=== PATIENT | female | born 1955 ===

== ENCOUNTER 2017-02-28 22:00 | Emergency (ER) | payer OTHER ==
--- NOTE | 2017-03-01 01:45 | ED CLINICAL REPORT ---
Clinical Report - Physicians/Mid Levels [facility] [address] [place] [address] 02/28/2017 22:02 Patient: DANETTE BUCKNER Time Seen: 22:31. Arrived- By private vehicle. Historian- patient. HISTORY OF PRESENT ILLNESS Chief Complaint: ABDOMINAL PAIN. At its maximum, severity described as 9 / 10. When seen in the E.D., severity described as 6 / 10. It is described as "pain" and cramping and it is described as located in the lower abdomen and radiating to the right lower quadrant of the abdomen and to the left lower quadrant of the abdomen. This started today at about 1:30 PM and is still present but is better now. It was abrupt in onset and has been constant. The patient has had nausea. No vomiting. She has had moderate loose stools (for about week). Similar symptoms previously: Once. Diagnosis: diverticulitis. REVIEW OF SYSTEMS The patient has had a subjective fever, chills and hesitancy and experienced sweats. No calf pain, chest pain, cough, difficulty breathing or pedal edema. No palpitations. All systems otherwise negative, except as recorded above. PAST HISTORY PCP - [facility]. SOCIAL HISTORY Current some days smoker. Occasional alcohol use. History of occasional drug use: marijuana. FAMILY HISTORY Diabetes in first-degree relative (mother). ADDITIONAL NOTES The nursing notes have been reviewed. PHYSICAL EXAM Vital Signs: 02/28/2017 22:32 BP: 128/73. HR: 99. RR: 20. O2 saturation: 98%. Temp: 98.8 F. Pain level now: 9/10. Have been reviewed. Appearance: Alert. Eyes: Pupils equal, round and reactive to light. ENT: Pharynx normal. Neck: Normal inspection. Neck supple. CVS: Normal heart rate and rhythm. Heart sounds normal. Respiratory: No respiratory distress. Breath sounds normal. Abdomen: Soft. Moderate tenderness in the left side of the abdomen, left lower quadrant and lower abdomen. Bowel sounds normal. No organomegaly. No mass. Back: Normal inspection. No CVA tenderness. Skin: Skin warm and dry. Normal skin color. No rash. Normal skin turgor. Extremities: Extremities exhibit normal ROM. No lower extremity edema. LABS, X-RAYS, AND EKG Abdominal CT: extensive pericolonic inflammatory changes in the sigmoid colon consistent with diverticulitis. No mature abscess. Gallstones. This is per a preliminary report by Dr. Chris Kelly M.D. of rn night radiology. The study was interpreted contemporaneously by me. Laboratory Tests: UA-Culture if indicated: (KIRIT: 02/28/2017 22:45) ( [facility] 02/28/2017 23:08) Final results Test Result Flag Units (Reference) URINE COLOR YELLOW URINE APPEARANCE CLEAR URINE GLUCOSE NEGATIVE (NEGATIVE) URINE BILIRUBIN NEGATIVE (NEGATIVE) URINE KETONE NEGATIVE (NEGATIVE) URINE SPECIFIC GRAVITY 1.010 (1.010-1.030) URINE PH 6.0 (5.0-8.0) URINE PROTEIN NEGATIVE (NEGATIVE) URINE UROBILINOGEN 0.2 EU/dL (0.2-1.0) URINE NITRITE NEGATIVE (NEGATIVE) URINE BLOOD 1+ (NEGATIVE) URINE LEUK ESTERASE NEGATIVE (NEGATIVE) URINE RBC 0-1 rbc/hpf (0-1) URINE WBC 0-1 wbc/hpf (0-1) URINE EPITHELIAL CELLS 0-1 EPI/hpf (0-5) URINE BACTERIA NONE SEEN (NONE SEEN) URINE COMMENT CULT NOT INDICATED URINE CULTURES ARE SET-UP BASED ON THE FOLLOWING CRITERIA:POSITIVE NITRITEPOSITIVE LEUKOCYTE ESTERASEGREATER THAN 10 WHITE BLOOD CELLSMODERATE (2+) OR GREATER BACTERIA CBC w Diff: (KIRIT: 02/28/2017 22:45) ( [facility] 02/28/2017 22:59) Final results Test Result Flag Units (Reference) WHITE BLOOD COUNT 16.2 H K/uL (4.5-11.5) RED BLOOD COUNT 4.47 M/uL (4.00-5.20) HEMOGLOBIN 13.6 gm/dL (12.0-16.0) HEMATOCRIT 41.2 % (36.0-46.0) MEAN CELL VOLUME 92 fL (80-100) MEAN CORPUSCULAR HGB 31 pg (26-34) MEAN CORPUSCULAR HGB CONC 33 g/dL (31-37) RED CELL DISTRIBUTION WIDTH 13.1 % (11.6-14.8) PLATELET COUNT 298 K/uL (150-400) LYMPH % 10.5 L % (25-40) MONO % 5.5 % (3-14) GRANULOCYTE % 84.0 (53-90) Lipase: (KIRIT: 02/28/2017 22:45) ( MsgRcvd 02/28/2017 23:24) Final results Test Result Flag Units (Reference) LIPASE 93 U/L (73-393) CMP: (KIRIT: 02/28/2017 22:45) ( MsgRcvd 02/28/2017 23:08) Final results Test Result Flag Units (Reference) GLUCOSE 147 H mg/dL (70-110) BUN 11 mg/dL (7-18) CREATININE 0.8 mg/dL (0.6-1.3) Estimated GFR >60 mL/min Estimated GFR- >60 mL/min Note: Persistent reduction over 3 months in eGFR<60 mL/min/1.73 m2 defines CKD. Patients with eGFR values>=60 mL/min/1.73 m2 may also have CKD if evidence ofpersistent proteinuria. Additional information may be foundat www.kidney.org. SODIUM 140 mmol/L (136-145) POTASSIUM 3.9 mmol/L (3.5-5.1) CHLORIDE 103 mmol/L (98-107) CARBON DIOXIDE 22 mmol/L (21-32) CALCIUM 9.2 mg/dL (8.5-10.1) TOTAL PROTEIN 7.6 g/dL (6.4-8.2) ALBUMIN 4.2 g/dL (3.3-5.0) BILIRUBIN, TOTAL 1.2 H mg/dL (0.0-1.0) ALKALINE PHOSPHATASE 103 U/L (46-116) AST (SGOT) 16 U/L (15-37) ALT (SGPT) 26 U/L (12-78) . PROGRESS AND PROCEDURES Patient/family counseled. Old medical records ordered. Old records unavailable. Disposition: Discharged. Condition: stable. CLINICAL IMPRESSION Acute diverticulitis. INSTRUCTIONS No driving or operating machinery while taking medication. Sedative medication was given during your visit. Drink plenty of fluids. Warnings: Further evaluation is necessary. GENERAL WARNINGS: Return or contact your physician immediately if your condition worsens or changes unexpectedly, if not improving as expected, or if other problems arise. Prescription Medications: Hydrocodone/APAP 5mg/325mg: take 1 to 2 orally every 6 hours as needed for pain. Dispense fifteen (15). No refills. Cipro 500 mg: take 1 tab orally every 12 hours for 10 days. No refills. Substitution is permissible. (18 pills to finish the course started in the ER. Start this on 03/02/17 as discussed) Flagyl 500 mg: Take 1 tablet orally every 8 hours for 10 days. No refill. Substitution is permissible. (29 pills to finish the course started in the ER) Understanding of the discharge instructions verbalized by patient. Follow-up with: [facility], , , [address], [place] [address] Follow up tomorrow. Call for an appointment. (Electronically signed by Arie Ramos MD 03/02/2017 15:45)
--- NOTE | 2017-03-01 01:45 | ED ORDER SUMMARY ---
..... Patient: DANETTE BUCKNER OrderSheet [facility] VisitID: [id number] [place], [place] [id number] 61y, F Registration Date/Time: 02/28/2017 ORDER SHEET Weight: 88.4 kg (stated) Allergies: GENERAL ORDERS: UA-Culture if indicated Urgent (22:49 02/28/2017 MWinterer R.N. per protocol) (Ack 22:51 CHagerty ER Stock Trader) (22:51 MWinterer R.N.) CBC w Diff Urgent (22:49 02/28/2017 MWinterer R.N. per protocol) (Ack 22:51 CHagerty ER Stock Trader) (22:51 MWinterer R.N.) CMP Urgent (22:49 02/28/2017 MWinterer R.N. per protocol) (Ack 22:51 CHagerty ER Stock Trader) (22:51 MWinterer R.N.) Lipase Urgent (23:14 02/28/2017 MWinterer R.N. per protocol) (23:18 CHagerty ER Stock Trader) Amylase Urgent (23:23 02/28/2017 Andres GORDON) (23:25 CHagerty ER Stock Trader) CT Abd/Pel w Cont (Yes) (See report) Urgent (23:29 02/28/2017 Andres GORDON) (Ack 23:31 CHagerty ER Stock Trader) (0:39 RMarsden R.N.) MEDICATION ORDERS: Levofloxacin PO 750 mg (NOW) (01:42 03/01/2017 Andres GORDON) (Ack 1:46 RMarsden R.N.) (2:00 RMarsden R.N.) Metronidazole PO 500 mg (NOW) (01:42 03/01/2017 Andres GORDON) (Ack 1:46 RMarsden R.N.) (2:01 RMarsden R.N.) IV FLUIDS: IV NS : initial bolus 500 mL (1000 mL/hr), then 125 mL/hr for 4h (NOW); Urgent (23:23 02/28/2017 Andres GORDON) (Ack 23:37 RMarsden R.N.) (23:47 RMarsden R.N.) Dilaudid IV 0.5 mg (HIGH ALERT MEDICATION, NOW) (23:28 02/28/2017 Andres GORDON) (Ack 23:37 Yaneth R.N.) (23:46 RMliz R.N.) Zofran IV 4 mg (NOW) (23:29 02/28/2017 Andres GORDON) (Ack 23:37 Yaneth R.N.) (23:44 RMliz R.N.) ORDER SHEET NOTES: [Electronically signed by Yvrose Roldan R.N. (02:45 03/01/2017)] [Electronically signed by Arie Ramos MD (15:45 03/02/2017)] [Electronically locked/signed by Yvrose Roldan R.N. (02:45 03/01/2017)]
--- NOTE | 2017-03-01 01:45 | ED ORDER SUMMARY ---
..... Patient: DANETTE BUCKNER OrderSheet [facility] VisitID: [id number] [place], [place] [id number] 61y, F Registration Date/Time: 02/28/2017 ORDER SHEET Weight: 88.4 kg (stated) Allergies: GENERAL ORDERS: UA-Culture if indicated Urgent (22:49 02/28/2017 MWinterer R.N. per protocol) (Ack 22:51 CHagerty ER Movement Assembly Final Inspector) (22:51 MWinterer R.N.) CBC w Diff Urgent (22:49 02/28/2017 MWinterer R.N. per protocol) (Ack 22:51 CHagerty ER Movement Assembly Final Inspector) (22:51 MWinterer R.N.) CMP Urgent (22:49 02/28/2017 MWinterer R.N. per protocol) (Ack 22:51 CHagerty ER Movement Assembly Final Inspector) (22:51 MWinterer R.N.) Lipase Urgent (23:14 02/28/2017 MWinterer R.N. per protocol) (23:18 CHagerty ER Movement Assembly Final Inspector) Amylase Urgent (23:23 02/28/2017 Andres GORDON) (23:25 CHagerty ER Movement Assembly Final Inspector) CT Abd/Pel w Cont (Yes) (See report) Urgent (23:29 02/28/2017 Andres GORDON) (Ack 23:31 CHagerty ER Movement Assembly Final Inspector) (0:39 RMarsden R.N.) MEDICATION ORDERS: Levofloxacin PO 750 mg (NOW) (01:42 03/01/2017 Andres GORDON) (Ack 1:46 RMarsden R.N.) (2:00 RMarsden R.N.) Metronidazole PO 500 mg (NOW) (01:42 03/01/2017 Andres GORDON) (Ack 1:46 RMarsden R.N.) (2:01 RMarsden R.N.) IV FLUIDS: IV NS : initial bolus 500 mL (1000 mL/hr), then 125 mL/hr for 4h (NOW); Urgent (23:23 02/28/2017 Andres GORDON) (Ack 23:37 RMarsden R.N.) (23:47 RMarsden R.N.) Dilaudid IV 0.5 mg (HIGH ALERT MEDICATION, NOW) (23:28 02/28/2017 Andres GORDON) (Ack 23:37 Yaneth R.N.) (23:46 RMliz R.N.) Zofran IV 4 mg (NOW) (23:29 02/28/2017 Andres GORDON) (Ack 23:37 Yaneth R.N.) (23:44 RMliz R.N.) ORDER SHEET NOTES: [Electronically signed by Yvrose Roldan R.N. (02:45 03/01/2017)] [Electronically signed by Arie Ramos MD (15:45 03/02/2017)] [Electronically locked/signed by Yvrose Roldan R.N. (02:45 03/01/2017)]
--- NOTE | 2017-03-01 01:45 | ED CLINICAL REPORT ---
Clinical Report - Physicians/Mid Levels [facility] [address] [place] [address] 02/28/2017 22:02 Patient: DANETTE BUCKNER Time Seen: 22:31. Arrived- By private vehicle. Historian- patient. HISTORY OF PRESENT ILLNESS Chief Complaint: ABDOMINAL PAIN. At its maximum, severity described as 9 / 10. When seen in the E.D., severity described as 6 / 10. It is described as "pain" and cramping and it is described as located in the lower abdomen and radiating to the right lower quadrant of the abdomen and to the left lower quadrant of the abdomen. This started today at about 1:30 PM and is still present but is better now. It was abrupt in onset and has been constant. The patient has had nausea. No vomiting. She has had moderate loose stools (for about week). Similar symptoms previously: Once. Diagnosis: diverticulitis. REVIEW OF SYSTEMS The patient has had a subjective fever, chills and hesitancy and experienced sweats. No calf pain, chest pain, cough, difficulty breathing or pedal edema. No palpitations. All systems otherwise negative, except as recorded above. PAST HISTORY PCP - [facility]. SOCIAL HISTORY Current some days smoker. Occasional alcohol use. History of occasional drug use: marijuana. FAMILY HISTORY Diabetes in first-degree relative (mother). ADDITIONAL NOTES The nursing notes have been reviewed. PHYSICAL EXAM Vital Signs: 02/28/2017 22:32 BP: 128/73. HR: 99. RR: 20. O2 saturation: 98%. Temp: 98.8 F. Pain level now: 9/10. Have been reviewed. Appearance: Alert. Eyes: Pupils equal, round and reactive to light. ENT: Pharynx normal. Neck: Normal inspection. Neck supple. CVS: Normal heart rate and rhythm. Heart sounds normal. Respiratory: No respiratory distress. Breath sounds normal. Abdomen: Soft. Moderate tenderness in the left side of the abdomen, left lower quadrant and lower abdomen. Bowel sounds normal. No organomegaly. No mass. Back: Normal inspection. No CVA tenderness. Skin: Skin warm and dry. Normal skin color. No rash. Normal skin turgor. Extremities: Extremities exhibit normal ROM. No lower extremity edema. LABS, X-RAYS, AND EKG Abdominal CT: extensive pericolonic inflammatory changes in the sigmoid colon consistent with diverticulitis. No mature abscess. Gallstones. This is per a preliminary report by Dr. Chris Kelly M.D. of poultry processor radiology. The study was interpreted contemporaneously by me. Laboratory Tests: UA-Culture if indicated: (KIRIT: 02/28/2017 22:45) ( [facility] 02/28/2017 23:08) Final results Test Result Flag Units (Reference) URINE COLOR YELLOW URINE APPEARANCE CLEAR URINE GLUCOSE NEGATIVE (NEGATIVE) URINE BILIRUBIN NEGATIVE (NEGATIVE) URINE KETONE NEGATIVE (NEGATIVE) URINE SPECIFIC GRAVITY 1.010 (1.010-1.030) URINE PH 6.0 (5.0-8.0) URINE PROTEIN NEGATIVE (NEGATIVE) URINE UROBILINOGEN 0.2 EU/dL (0.2-1.0) URINE NITRITE NEGATIVE (NEGATIVE) URINE BLOOD 1+ (NEGATIVE) URINE LEUK ESTERASE NEGATIVE (NEGATIVE) URINE RBC 0-1 rbc/hpf (0-1) URINE WBC 0-1 wbc/hpf (0-1) URINE EPITHELIAL CELLS 0-1 EPI/hpf (0-5) URINE BACTERIA NONE SEEN (NONE SEEN) URINE COMMENT CULT NOT INDICATED URINE CULTURES ARE SET-UP BASED ON THE FOLLOWING CRITERIA:POSITIVE NITRITEPOSITIVE LEUKOCYTE ESTERASEGREATER THAN 10 WHITE BLOOD CELLSMODERATE (2+) OR GREATER BACTERIA CBC w Diff: (KIRIT: 02/28/2017 22:45) ( [facility] 02/28/2017 22:59) Final results Test Result Flag Units (Reference) WHITE BLOOD COUNT 16.2 H K/uL (4.5-11.5) RED BLOOD COUNT 4.47 M/uL (4.00-5.20) HEMOGLOBIN 13.6 gm/dL (12.0-16.0) HEMATOCRIT 41.2 % (36.0-46.0) MEAN CELL VOLUME 92 fL (80-100) MEAN CORPUSCULAR HGB 31 pg (26-34) MEAN CORPUSCULAR HGB CONC 33 g/dL (31-37) RED CELL DISTRIBUTION WIDTH 13.1 % (11.6-14.8) PLATELET COUNT 298 K/uL (150-400) LYMPH % 10.5 L % (25-40) MONO % 5.5 % (3-14) GRANULOCYTE % 84.0 (53-90) Lipase: (KIRIT: 02/28/2017 22:45) ( MsgRcvd 02/28/2017 23:24) Final results Test Result Flag Units (Reference) LIPASE 93 U/L (73-393) CMP: (KIRIT: 02/28/2017 22:45) ( MsgRcvd 02/28/2017 23:08) Final results Test Result Flag Units (Reference) GLUCOSE 147 H mg/dL (70-110) BUN 11 mg/dL (7-18) CREATININE 0.8 mg/dL (0.6-1.3) Estimated GFR >60 mL/min Estimated GFR- >60 mL/min Note: Persistent reduction over 3 months in eGFR<60 mL/min/1.73 m2 defines CKD. Patients with eGFR values>=60 mL/min/1.73 m2 may also have CKD if evidence ofpersistent proteinuria. Additional information may be foundat www.kidney.org. SODIUM 140 mmol/L (136-145) POTASSIUM 3.9 mmol/L (3.5-5.1) CHLORIDE 103 mmol/L (98-107) CARBON DIOXIDE 22 mmol/L (21-32) CALCIUM 9.2 mg/dL (8.5-10.1) TOTAL PROTEIN 7.6 g/dL (6.4-8.2) ALBUMIN 4.2 g/dL (3.3-5.0) BILIRUBIN, TOTAL 1.2 H mg/dL (0.0-1.0) ALKALINE PHOSPHATASE 103 U/L (46-116) AST (SGOT) 16 U/L (15-37) ALT (SGPT) 26 U/L (12-78) . PROGRESS AND PROCEDURES Patient/family counseled. Old medical records ordered. Old records unavailable. Disposition: Discharged. Condition: stable. CLINICAL IMPRESSION Acute diverticulitis. INSTRUCTIONS No driving or operating machinery while taking medication. Sedative medication was given during your visit. Drink plenty of fluids. Warnings: Further evaluation is necessary. GENERAL WARNINGS: Return or contact your physician immediately if your condition worsens or changes unexpectedly, if not improving as expected, or if other problems arise. Prescription Medications: Hydrocodone/APAP 5mg/325mg: take 1 to 2 orally every 6 hours as needed for pain. Dispense fifteen (15). No refills. Cipro 500 mg: take 1 tab orally every 12 hours for 10 days. No refills. Substitution is permissible. (18 pills to finish the course started in the ER. Start this on 03/02/17 as discussed) Flagyl 500 mg: Take 1 tablet orally every 8 hours for 10 days. No refill. Substitution is permissible. (29 pills to finish the course started in the ER) Understanding of the discharge instructions verbalized by patient. Follow-up with: [facility], , , [address], [place] [address] Follow up tomorrow. Call for an appointment. (Electronically signed by Arie Ramos MD 03/02/2017 15:45)
--- NOTE | 2017-03-01 01:45 | ED NURSING NOTES ---
Clinical Report - Nurses [facility] [address] [place] [address] 02/28/2017 22:02 Patient: DANETTE BUCKNER TRIAGE Acuity: LEVEL 3. Chief Complaint: ABDOMINAL PAIN and NAUSEA. Alert. No acute distress. SEPSIS SCREEN: Sepsis Screen. Negative (no infection suspected/documented). --22:37 Brittney Hwang R.N. 22:32 02/28/17. BP: 128/73. HR: 99. RR: 20. O2 saturation: 98% on room air. Temp: 98.8 F (oral). Pain level now: 9/10. --22:37 Brittney Hwang R.N. Weight: 88.4 kg stated. Height/Length: 62 inches Per Patient. BMI: 35.7. --22:34 Brittney Hwang R.N. Medications Lisinopril Oral. --22:33 Brittney Hwang R.N. Atorvastatin Calcium Oral. --22:33 Brittney Hwang R.N. Medication/allergy information source: the patient. --22:37 Brittney Hwang R.N. History Arrived by private vehicle. Historian: patient. Accompanied by spouse. Primary physician ([facility]). This started today. ( aching). Relates location as in the right and left pelvic area and pelvic area. Notes pain level as 9/10 on arrival. ( Pt states painful urination and a hard time voiding. Pt also states pain is like a bout of diverticulitis she had in the past.). Reports last BM was today. Treatment CHEMISTRY PROFESSOR: (aleeve). PAST MEDICAL HX: Immunizations: up-to-date. The patient is post-menopausal. SOCIAL HX: Current some days light tobacco smoker (cigarette)- less than 1/2 a pack per day. Occasional alcohol use. History of occasional drug use: marijuana. FALL RISK ASSESSMENT: Fall risk assessment completed. No fall risk identified. NUTRITIONAL RISK ASSESSMENT: The nutritional risk assessment revealed no deficiencies. FUNCTIONAL ASSESSMENT: Functional assessment: no impairments noted. LEARNING NEEDS ASSESSMENT: The learning needs assessment revealed no barriers. SKIN INTEGRITY ASSESSMENT: Skin integrity risk assessment completed. No skin integrity risk identified. --22:37 Brittney Hwang R.N. PROBLEMS: Hypertension. Diverticulitis. --22:34 Brittney Hwang R.N. ADDITIONAL SURGERIES: Appendectomy. --22:34 Brittney Hwang R.N. Assessment GENERAL / NEURO / PSYCH: Alert. Oriented X 4. Appears in no acute distress. [place] Coma Scale: 15- eyes open spontaneously (4); best verbal response- oriented x 4 (5); best motor response- obeys commands (6). Patient appears calm and cooperative. RESPIRATORY: Respirations not labored. CVS: Capillary refill less than 2 seconds. GI / : Abdomen soft and nontender. SKIN: Mucous membranes are pink. Skin is warm and dry. --22:37 Brittney Hwang R.N. Interventions ID band on patient. To treatment room. Transported via wheelchair. --22:37 Brittney Hwang R.N. PHYSICAL ASSESSMENT 22:38 02/28/17. To room via wheelchair. Patient gowned. GENERAL / NEURO / PSYCH: Alert. Oriented X 4. Appears in no acute distress. HEENT: Mucous membranes are pink. RESPIRATORY: Respirations not labored. CVS: Capillary refill less than 2 seconds. GI / : Abdomen soft and nontender. SKIN: Skin is warm and dry. --22:38 Brittney Hwang R.N. NURSING PROGRESS NOTES 22:38 02/28/17. Patient gowned. Reassurance given. Two patient identifiers checked. Call light placed in reach. Side rails up x 1. Bed placed in lowest position. Brakes of bed on. Patient ready for evaluation- chart flagged and ED physician and PA notified. --22:38 Brittney Hwang R.N. ( Pt ambulated to to provide urine sample.). --22:38 Brittney Hwang R.N. 22:50 02/28/2017 Site #1 started via IV in the left antecubital space with an 20g angiocath, with aseptic technique and good blood return; one attempt. Blood drawn: rainbow set. Labeled in the presence of the patient and sent to the lab. Saline lock flushed with 10 mL saline. --22:50 Brittney Hwang R.N. Checked patient name and birthdate. Instructions provided to collect clean catch urine and patient verbalized understanding. Clean catch urine collected with return of yellow-colored clear urine; sample sent to lab for urinalysis. Specimen labeled in the presence of the patient. --23:20 Brittney Hwang R.N. 23:20 02/28/17. Care transferred and report given (Yvrose, ED RN). --23:20 Britteny Hwang R.N. 23:42 02/28/2017 Started bag #1 1000 IV Fluids IV NS (Saline); bolus of 500 mL over 30 minute(s) then at 125 mL/hr over 4 hour(s) via site #1 via IV pump. Allergies verified and confirmed 5 rights. IV patency established. IV site checked: no pain, redness, or swelling. IV flushed thoroughly pre- and post-medication administration. Completed per protocol. --23:48 Yvrose Roldan R.N. 23:44 02/28/2017 Zofran (Ondansetron HCl) IVP 4 mg given over 2 minute(s) via site #1. Allergies verified and confirmed 5 rights. IV patency established. IV site checked: no pain, redness, or swelling. IV flushed thoroughly pre- and post-medication administration. IVP given by RN. --23:44 Yvrose Roldan R.N. 23:46 02/28/2017 Dilaudid (HYDROmorphone HCl PF) IVP 0.5 mg given over 2 minute(s) via site #1. Allergies verified, confirmed 5 rights and sedative warning given to the patient and patient's family. IV patency established. IV site checked: no pain, redness, or swelling. IV flushed thoroughly pre- and post-medication administration. IVP given by RN. --23:46 Yvrose Roldan R.N. <<STRICKEN ENTRY-- 23:47 02/28/2017 Started bag #1 1000 mL IV Fluids IV NS (Saline); bolus of 500 mL over 30 minute(s) then at 125 mL/hr over 4 hour(s) via site #1 via IV pump. Allergies verified and confirmed 5 rights. IV patency established. IV site checked: no pain, redness, or swelling. IV flushed thoroughly pre- and post-medication administration. Completed per protocol. --23:47 Yvrose Roldan R.N. --END STRIKE>> Correction. --23:48 Yvrose Roldan R.N. 00:18 03/01/17. BP: 99/54. HR: 70. RR: 14. O2 saturation: 97%. Temp: deferred. Pain level now: 01/13. --00:42 Yvrose Roldan R.N. ( Patient hooked back up to IV fluids after CT). --00:42 Yvrose Roldan R.N. ( Patient requested to have IV checked. This RN checked the IV site and IV fluids. There is no redness, swelling or warmth at IV site, and fluids are running.). --01:38 Yvrose Roldan R.N. 01:48 03/01/2017 IV Fluids IV NS Discontinued: bag #1 discontinued upon discharge. Total amount infused: 850 mL. IV patency established. IV site checked: no pain, redness, or swelling. IV flushed thoroughly. --02:43 Yvrose Roldan R.N. 01:51 03/01/2017 Metronidazole PO Tablets 500 mg given. Allergies verified and confirmed 5 rights. --02:01 Yvrose Roldan R.N. 02:00 03/01/2017 Levofloxacin PO Tablets 750 mg given. Allergies verified and confirmed 5 rights. --02:00 Yvrose Roldan R.N. DISPOSITION / DISCHARGE 01:03/01/17. BP: 99/55. HR: 80. RR: 16. O2 saturation: 95%. Pain level now: 11/13. --02:01 Yvrose Roldan R.N. 01:49 03/01/2017 Site #1 removed upon discharge. Manual pressure and bandaid applied. --02:44 Yvrose Roldan R.N. 02:03/01/17. No learning barriers present. Discharge instructions provided and reviewed with the patient. Reviewed warnings. Reviewed medication(s). Treatments reviewed. Reviewed referrals. Activity restrictions reviewed. Patient verbalized understanding. Written instructions provided in Italian. The patient was discharged home and accompanied by spouse. She left the Emergency Department ambulatory and via private vehicle. Spouse driving. --02:01 Yvrose Roldan R.N. Locked/Released at 03/01/2017 2:45 by Yvrose Roldan R.N.
--- NOTE | 2017-03-01 08:17 | DIAGNOSTIC IMAGING REPORT ---
PROCEDURE: ABDOMEN/PELVIS WITH CONTRAST CLINICAL INDICATION: ABDOMINAL PAIN TECHNIQUE: 125 ml of Isovue 300 were injected intravenously and axial images were obtained of the abdomen and pelvis with sagittal and coronal reformations. COMPARISON: None. FINDINGS: ABDOMEN: Noncalcified 15 mm stone definitely in the gallbladder fundus. Clear lung bases. Normal sized heart. No hiatal hernia. The liver, adrenal glands, kidneys, pancreas and spleen are normal. The abdominal aorta is normal in its course and caliber. Mild calcific atherosclerosis. There are no suspicious calcifications, retroperitoneal adenopathy or masses. The stomach and upper small bowel loops are normal. Diverticulosis is seen in the transverse and upper ascending and descending colon. There is extensive inflammation around the entire sigmoid colon which also contains a numerous diverticula. No evidence of perforation, free fluid, or focal fluid collection. PELVIS: The appendix is not visualized. The pelvic small bowel loops are normal. The uterus, ovaries, urinary bladder, and pelvic vessels are normal. No adenopathy, free fluid, or pelvic mass. Intact osseous structures. IMPRESSION: 1. Acute, uncomplicated sigmoid diverticulitis. 2. Cholelithiasis. 3. Diverticula throughout the remainder of the colon. 4. Preliminary report by Dr. Chris Kelly of [facility] radiology. All CT scans at this facility use dose modulation, iterative reconstruction, and/or weight-based dosing when appropriate to reduce radiation dose to as low as reasonably achievable.
--- NOTE | 2017-03-02 15:46 | ED DISCHARGE INSTRUCTIONS ---
Patient: DANETTE BUCKNER General Instructions [facility] VisitID: [id number] [place] [address] 61y, F Registration Date/Time: 02/28/2017 Acute diverticulitis. INSTRUCTIONS No driving or operating machinery while taking medication. Sedative medication was given during your visit. Drink plenty of fluids. Warnings: Further evaluation is necessary. GENERAL WARNINGS: Return or contact your physician immediately if your condition worsens or changes unexpectedly, if not improving as expected, or if other problems arise. Prescription Medications: Hydrocodone/APAP 5mg/325mg: take 1 to 2 orally every 6 hours as needed for pain. Dispense fifteen (15). No refills. Cipro 500 mg: take 1 tab orally every 12 hours for 10 days. No refills. Substitution is permissible. (18 pills to finish the course started in the ER. Start this on 03/02/17 as discussed) Flagyl 500 mg: Take 1 tablet orally every 8 hours for 10 days. No refill. Substitution is permissible. (29 pills to finish the course started in the ER) Understanding of the discharge instructions verbalized by patient. Follow-up with: [facility], , , [address], [place] [address] Follow up tomorrow. Call for an appointment. ADDITIONAL INFORMATION Diverticulitis Some people develop pouches along the wall of the colon as they get older. The pouches,called diverticuli, usually cause no symptoms. If the pouches become blocked, an infection may occur known as diverticulitis. This causes lower abdominal pain and fever. If not treated, it can become a serious condition, causing an abscess to form inside the pouch. The abscess may block the instestinal tract even or rupture, spreading infection throughout the abdomen. When treatment is started early, oral antibiotics alone may be enough to cure diverticulitis. This method is tried first. However, if you do not improve or if your condition worsens while you are trying oral antibiotics, it will be necessary to admit you to the hospital for IV antibiotics. Severe cases may require surgery. Home care The following guidelines will help you care for your diverticulitis at home: During the acute illness, rest and follow a low-fiber diet: Foods to Include: flake cereal, mashed potatoes, pancakes, waffles, pasta, white bread, rice, applesauce, bananas, eggs, meat, fish, poultry, tofu, cooked vegetables. Take antibiotics exactly as directed. Do not miss any doses or stop taking the medication, even if you feel better. Monitor your temperature and report any rising temperature to your doctor. Preventing future attacks Once you have had an episode of diverticulitis, you are at risk of having a recurrence. After you have recovered from this episode, you may be able to reduce your risk by eating a high-fiber diet (2035 gm/day of fiber). This cleans out the colon pouches that already exist and prevent new ones from forming. Foods high in fiber includes fresh fruits and edible peelings, raw or lightly cooked vegetables, whole grain cereals and breads, dried beans and peas, bran. Follow-up care Follow up with your doctor as advised or sooner if you are not improving in the nexttwo days. When to seek medical care Get prompt medical attention if any of the following occur: Fever of 100.4F (38C) or higher, or as directed by your health care provider Repeated vomiting or swelling of the abdomen Weakness, dizziness, light-headedness Increasing abdominal pain that becomes severe or spreads to your back Pain that moves to the right lower abdomen Rectal bleeding (red, black or maroon color of the stools) Unexpected vaginal bleeding Hydrocodone Bitartrate, Acetaminophen Oral tablet What is this medicine? ACETAMINOPHEN; HYDROCODONE (a set a DERICK thea fen; stephanie droe KOE done) is a pain reliever. It is used to treat mild to moderate pain. How should I use this medicine? Take this medicine by mouth. Swallow it with a full glass of water. Follow the directions on the prescription label. If the medicine upsets your stomach, take the medicine with food or milk. Do not take more than you are told to take. Talk to your registered dental assistant rda regarding the use of this medicine in children. This medicine is not approved for use in children. What side effects may I notice from receiving this medicine? Side effects that you should report to your doctor or health residential child care counselor as soon as possible: allergic reactions like skin rash, itching or hives, swelling of the face, lips, or tongue breathing problems confusion feeling faint or lightheaded, falls stomach pain yellowing of the eyes or skin Side effects that usually do not require medical attention (report to your doctor or health residential child care counselor if they continue or are bothersome): nausea, vomiting stomach upset What may interact with this medicine? alcohol antihistamines isoniazid medicines for depression, anxiety, or psychotic disturbances medicines for sleep muscle relaxants naltrexone narcotic medicines (opiates) for pain phenobarbital ritonavir tramadol What if I miss a dose? If you miss a dose, take it as soon as you can. If it is almost time for your next dose, take only that dose. Do not take double or extra doses. Where should I keep my medicine? Keep out of the reach of children. This medicine can be abused. Keep your medicine in a safe place to protect it from theft. Do not share this medicine with anyone. Selling or giving away this medicine is dangerous and against the law. Store at room temperature between 15 and 30 degrees C (59 and 86 degrees F). Protect from light. Keep container tightly closed. Throw away any unused medicine after the expiration date. Discard unused medicine and used packaging carefully. Pets and children can be harmed if they find used or lost packages. What should I tell my health care provider before I take this medicine? They need to know if you have any of these conditions: brain tumor Crohn's disease, inflammatory bowel disease, or ulcerative colitis drink more than 3 alcohol-containing drinks per day drug abuse or addiction head injury heart or circulation problems kidney disease or problems going to the bathroom liver disease lung disease, asthma, or breathing problems an unusual or allergic reaction to acetaminophen, hydrocodone, other opioid analgesics, other medicines, foods, dyes, or preservatives or trying to get breast-feeding What should I watch for while using this medicine? Tell your doctor or health residential child care counselor if your pain does not go away, if it gets worse, or if you have new or a different type of pain. You may develop tolerance to the medicine. Tolerance means that you will need a higher dose of the medicine for pain relief. Tolerance is normal and is expected if you take the medicine for a long time. Do not suddenly stop taking your medicine because you may develop a severe reaction. Your body becomes used to the medicine. This does NOT mean you are addicted. Addiction is a behavior related to getting and using a drug for a non-medical reason. If you have pain, you have a medical reason to take pain medicine. Your doctor will tell you how much medicine to take. If your doctor wants you to stop the medicine, the dose will be slowly lowered over time to avoid any side effects. You may get drowsy or dizzy when you first start taking the medicine or change doses. Do not drive, use machinery, or do anything that may be dangerous until you know how the medicine affects you. Stand or sit up slowly. There are different types of narcotic medicines (opiates) for pain. If you take more than one type at the same time, you may have more side effects. Give your health care provider a list of all medicines you use. Your doctor will tell you how much medicine to take. Do not take more medicine than directed. Call emergency for help if you have problems breathing. The medicine will cause constipation. Try to have a bowel movement at least every 2 to 3 days. If you do not have a bowel movement for 3 days, call your doctor or health residential child care counselor. Too much acetaminophen can be very dangerous. Do not take Tylenol (acetaminophen) or medicines that contain acetaminophen with this medicine. Many non-prescription medicines contain acetaminophen. Always read the labels carefully. Ciprofloxacin Hydrochloride Oral tablet What is this medicine? CIPROFLOXACIN (sip shanti FLOX a sin) is a quinolone antibiotic. It is used to treat certain kinds of bacterial infections. It will not work for colds, flu, or other viral infections. How should I use this medicine? Take this medicine by mouth with a glass of water. Follow the directions on the prescription label. Take your medicine at regular intervals. Do not take your medicine more often than directed. Take all of your medicine as directed even if you think your are better. Do not skip doses or stop your medicine early. You can take this medicine with food or on an empty stomach. It can be taken with a meal that contains dairy or calcium, but do not take it alone with a dairy product, like milk or yogurt or calcium-fortified juice. A special MedGuide will be given to you by the pharmacist with each prescription and refill. Be sure to read this information carefully each time. Talk to your registered dental assistant rda regarding the use of this medicine in children. Special care may be needed. What side effects may I notice from receiving this medicine? Side effects that you should report to your doctor or health residential child care counselor as soon as possible: - allergic reactions like skin rash, itching or hives, swelling of the face, lips, or tongue - breathing problems - confusion, nightmares or hallucinations - feeling faint or lightheaded, falls - irregular heartbeat - joint, muscle or tendon pain or swelling - pain or trouble passing urine -persistent headache with or without blurred vision - redness, blistering, peeling or loosening of the skin, including inside the mouth - seizure - unusual pain, numbness, tingling, or weakness Side effects that usually do not require medical attention (report to your doctor or health residential child care counselor if they continue or are bothersome): - diarrhea - nausea or stomach upset - white patches or sores in the mouth What may interact with this medicine? Do not take this medicine with any of the following medications: cisapride droperidol terfenadine tizanidine This medicine may also interact with the following medications: antacids caffeine cyclosporin didanosine (ddI) buffered tablets or powder medicines for diabetes medicines for inflammation like ibuprofen, naproxen methotrexate multivitamins omeprazole phenytoin probenecid sucralfate theophylline warfarin What if I miss a dose? If you miss a dose, take it as soon as you can. If it is almost time for your next dose, take only that dose. Do not take double or extra doses. Where should I keep my medicine? Keep out of the reach of children. Store at room temperature below 30 degrees C (86 degrees F). Keep container tightly closed. Throw away any unused medicine after the expiration date. What should I tell my health care provider before I take this medicine? They need to know if you have any of these conditions: -bone problems -cerebral disease -joint problems -irregular heartbeat -kidney disease -liver disease -myasthenia gravis -seizure disorder -tendon problems -an unusual or allergic reaction to ciprofloxacin, other antibiotics or medicines, foods, dyes, or preservatives - or trying to get -breast-feeding What should I watch for while using this medicine? Tell your doctor or health residential child care counselor if your symptoms do not improve. Do not treat diarrhea with over the counter products. Contact your doctor if you have diarrhea that lasts more than 2 days or if it is severe and watery. You may get drowsy or dizzy. Do not drive, use machinery, or do anything that needs mental alertness until you know how this medicine affects you. Do not stand or sit up quickly, especially if you are an older patient. This reduces the risk of dizzy or fainting spells. This medicine can make you more sensitive to the sun. Keep out of the sun. If you cannot avoid being in the sun, wear protective clothing and use sunscreen. Do not use sun lamps or tanning beds/booths. Avoid antacids, aluminum, calcium, iron, magnesium, and zinc products for 6 hours before and 2 hours after taking a dose of this medicine. Metronidazole Oral tablet What is this medicine? METRONIDAZOLE (me troe NI da zole) is an antiinfective. It is used to treat certain kinds of bacterial and protozoal infections. It will not work for colds, flu, or other viral infections. How should I use this medicine? Take this medicine by mouth with a full glass of water. Follow the directions on the prescription label. Take your medicine at regular intervals. Do not take your medicine more often than directed. Take all of your medicine as directed even if you think you are better. Do not skip doses or stop your medicine early. Talk to your registered dental assistant rda regarding the use of this medicine in children. Special care may be needed. What side effects may I notice from receiving this medicine? Side effects that you should report to your doctor or health residential child care counselor as soon as possible: allergic reactions like skin rash or hives, swelling of the face, lips, or tongue confusion, clumsiness difficulty speaking discolored or sore mouth dizziness fever, infection numbness, tingling, pain or weakness in the hands or feet trouble passing urine or change in the amount of urine redness, blistering, peeling or loosening of the skin, including inside the mouth seizures unusually weak or tired vaginal irritation, dryness, or discharge Side effects that usually do not require medical attention (report to your doctor or health residential child care counselor if they continue or are bothersome): diarrhea headache irritability metallic taste nausea stomach pain or cramps trouble sleeping What may interact with this medicine? Do not take this medicine with any of the following medications: alcohol or any product that contains alcohol amprenavir oral solution cisapride disulfiram dofetilide dronedarone paclitaxel injection pimozide ritonavir oral solution sertraline oral solution sulfamethoxazole-trimethoprim injection thioridazine ziprasidone This medicine may also interact with the following medications: cimetidine lithium other medicines that prolong the QT interval (cause an abnormal heart rhythm) phenobarbital phenytoin warfarin What if I miss a dose? If you miss a dose, take it as soon as you can. If it is almost time for your next dose, take only that dose. Do not take double or extra doses. Where should I keep my medicine? Keep out of the reach of children. Store at room temperature below 25 degrees C (77 degrees F). Protect from light. Keep container tightly closed. Throw away any unused medicine after the expiration date. What should I tell my health care provider before I take this medicine? They need to know if you have any of these conditions: anemia or other blood disorders disease of the nervous system fungal or yeast infection if you drink alcohol containing drinks liver disease seizures an unusual or allergic reaction to metronidazole, or other medicines, foods, dyes, or preservatives or trying to get breast-feeding What should I watch for while using this medicine? Tell your doctor or health residential child care counselor if your symptoms do not improve or if they get worse. You may get drowsy or dizzy. Do not drive, use machinery, or do anything that needs mental alertness until you know how this medicine affects you. Do not stand or sit up quickly, especially if you are an older patient. This reduces the risk of dizzy or fainting spells. Avoid alcoholic drinks while you are taking this medicine and for three days afterward. Alcohol may make you feel dizzy, sick, or flushed. If you are being treated for a sexually transmitted disease, avoid sexual contact until you have finished your treatment. Your sexual partner may also need treatment. You have been given the following additional information: Diverticulitis Hydrocodone Bitartrate, Acetaminophen Oral tablet Ciprofloxacin Hydrochloride Oral tablet Metronidazole Oral tablet No driving or operating machinery while taking medication. Sedative medication was given during your visit. (Electronically signed by Arie Ramso MD 03/02/2017 15:45)
--- NOTE | 2017-03-02 15:47 | ED MAR SUMMARY ---
..... Medication Administration Record [facility] [address] [place] [address] Patient: DANETTE BUCKNER Visit ID: [id number] 61y, F Weight: 88.4 kg Height/Length: 62 in BMI: 35.7 ALLERGIES: Start 23:42 02/28/2017 Yvrose Roldan R.N., Stop 01:48 03/01/2017 Yvrose Roldan R.N. Medication Administered: IV NS (SALINE), Dose: IV Fluids over 4 hour(s), Rate: 125 mL/hr, Bolus: 500 mL over 30 minute(s), Dispensed: 1000 mL bag, Site: #1 left AC. Medication Ordered: IV NS : initial bolus 500 mL (1000 mL/hr), then 125 mL/hr for 4h (NOW); Urgent. Given 23:44 02/28/2017 Yvrose Roldan R.N. Medication Administered: ZOFRAN [IVP] (ONDANSETRON HCL), Dose: 4 mg IVP over 2 minute(s), Site: #1 left AC. Medication Ordered: Zofran IV 4 mg (NOW). Given 23:46 02/28/2017 Yvrose Roldan R.N. Medication Administered: DILAUDID [IVP] (HYDROMORPHONE HCL PF), Dose: 0.5 mg IVP over 2 minute(s), Site: #1 left AC. Medication Ordered: Dilaudid IV 0.5 mg (HIGH ALERT MEDICATION, NOW). Given 01:51 03/01/2017 Yvrose Roldan R.N. Medication Administered: METRONIDAZOLE [PO], Dose: 500 mg Tablets PO. Medication Ordered: Metronidazole PO 500 mg (NOW). Given 02:00 03/01/2017 Yvrose Roldan R.N. Medication Administered: LEVOFLOXACIN [PO], Dose: 750 mg Tablets PO. Medication Ordered: Levofloxacin PO 750 mg (NOW).
--- NOTE | 2017-03-02 15:47 | ED MAR SUMMARY ---
..... Medication Administration Record [facility] [address] [place] [address] Patient: DANETTE BUCKNER Visit ID: [id number] 61y, F Weight: 88.4 kg Height/Length: 62 in BMI: 35.7 ALLERGIES: Start 23:42 02/28/2017 Yvrose Roldan R.N., Stop 01:48 03/01/2017 Yvrose Roldan R.N. Medication Administered: IV NS (SALINE), Dose: IV Fluids over 4 hour(s), Rate: 125 mL/hr, Bolus: 500 mL over 30 minute(s), Dispensed: 1000 mL bag, Site: #1 left AC. Medication Ordered: IV NS : initial bolus 500 mL (1000 mL/hr), then 125 mL/hr for 4h (NOW); Urgent. Given 23:44 02/28/2017 Yvrose Roldan R.N. Medication Administered: ZOFRAN [IVP] (ONDANSETRON HCL), Dose: 4 mg IVP over 2 minute(s), Site: #1 left AC. Medication Ordered: Zofran IV 4 mg (NOW). Given 23:46 02/28/2017 Yvrose Roldan R.N. Medication Administered: DILAUDID [IVP] (HYDROMORPHONE HCL PF), Dose: 0.5 mg IVP over 2 minute(s), Site: #1 left AC. Medication Ordered: Dilaudid IV 0.5 mg (HIGH ALERT MEDICATION, NOW). Given 01:51 03/01/2017 Yvrose Roldan R.N. Medication Administered: METRONIDAZOLE [PO], Dose: 500 mg Tablets PO. Medication Ordered: Metronidazole PO 500 mg (NOW). Given 02:00 03/01/2017 Yvrose Roldan R.N. Medication Administered: LEVOFLOXACIN [PO], Dose: 750 mg Tablets PO. Medication Ordered: Levofloxacin PO 750 mg (NOW).
--- NOTE | 2017-03-02 15:47 | ED MED RECONCILIATION SUMMARY ---
Patient: DANETTE BUCKNER Medication Reconciliation Report [facility] VisitID: [id number] [address] [place] [address] 61y, F Registration Date/Time: 02/28/2017 Weight: 88.4 kg Height/Length: 62 in. BMI: 35.7 ALLERGIES: The patient's Home Medications are listed below: THE FOLLOWING MEDICATIONS NEED TO BE RECONCILED: Atorvastatin Calcium Oral Lisinopril Oral The source(s) of the original Home Medication information: patient The following Medications were given to the patient in the Emergency Department: Zofran [IVP] IVP 4 mg, administered: 02/28/2017 11:44:00 PM Dilaudid [IVP] IVP 0.5 mg, administered: 02/28/2017 11:46:00 PM IV NS IV Fluids bolus 500 mL over 30 minute(s), then 125 mL/hr, administered: 02/28/2017 11:42:00 PM Levofloxacin [PO] PO 750 mg, administered: 03/01/2017 2:00:00 AM Metronidazole [PO] PO 500 mg, administered: 03/01/2017 1:51:00 AM The following Medications were prescribed to the patient: Hydrocodone/APAP 5mg/325mg: take 1 to 2 orally every 6 hours as needed for pain. Dispense fifteen (15). No refills. -- Arie Ramos MD Cipro 500 mg: take 1 tab orally every 12 hours for 10 days. No refills. Substitution is permissible.(18 pills to finish the course started in the ER. Start this on 03/02/17 as discussed) -- Arie Ramos MD Flagyl 500 mg: Take 1 tablet orally every 8 hours for 10 days. No refill. Substitution is permissible.(29 pills to finish the course started in the ER) -- Arie Ramos MD
--- NOTE | 2017-03-02 15:47 | ED MED RECONCILIATION SUMMARY ---
Patient: DANETTE BUCKNER Medication Reconciliation Report [facility] VisitID: [id number] [address] [place] [address] 61y, F Registration Date/Time: 02/28/2017 Weight: 88.4 kg Height/Length: 62 in. BMI: 35.7 ALLERGIES: The patient's Home Medications are listed below: THE FOLLOWING MEDICATIONS NEED TO BE RECONCILED: Atorvastatin Calcium Oral Lisinopril Oral The source(s) of the original Home Medication information: patient The following Medications were given to the patient in the Emergency Department: Zofran [IVP] IVP 4 mg, administered: 02/28/2017 11:44:00 PM Dilaudid [IVP] IVP 0.5 mg, administered: 02/28/2017 11:46:00 PM IV NS IV Fluids bolus 500 mL over 30 minute(s), then 125 mL/hr, administered: 02/28/2017 11:42:00 PM Levofloxacin [PO] PO 750 mg, administered: 03/01/2017 2:00:00 AM Metronidazole [PO] PO 500 mg, administered: 03/01/2017 1:51:00 AM The following Medications were prescribed to the patient: Hydrocodone/APAP 5mg/325mg: take 1 to 2 orally every 6 hours as needed for pain. Dispense fifteen (15). No refills. -- Arie Ramos MD Cipro 500 mg: take 1 tab orally every 12 hours for 10 days. No refills. Substitution is permissible.(18 pills to finish the course started in the ER. Start this on 03/02/17 as discussed) -- Arie Ramos MD Flagyl 500 mg: Take 1 tablet orally every 8 hours for 10 days. No refill. Substitution is permissible.(29 pills to finish the course started in the ER) -- Arie Ramos MD
== END 2017-03-01 02:01 | disposition home or self-care (01) ==
LOC: ED SRH 22:00
DX: K57.32 Diverticulitis of large intestine without perforation or abscess without bleeding (principal); I10 Essential (primary) hypertension; Z79.899 Other long term (current) drug therapy; F17.210 Nicotine dependence, cigarettes, uncomplicated
CPT/HCPCS: 90004; 90100; 92235; 92530; 95059